=== PATIENT | male | born 1970 | race American Indian/Alaskan Native ===

== ENCOUNTER 2018-06-05 07:08 | Emergency (ER) | payer MEDICAID ==
[2018-06-05 07:16] VITALS: BMI 25.8
[2018-06-05 07:18] VITALS: TEMP 98.8; O2SAT 99
[2018-06-05 08:24] LABS: BASO # 0.1 K/uL (0.0-0.2); BASO % 1.1 % (0.0-2.0); EOS # 0.1 K/uL (0.0-0.7); EOS % 1.1 % (0.0-4.0); HEMOGLOBIN 12.8 g/dL (12.0-18.0); LYMPH # 1.7 K/uL (1.0-4.3); LYMPH % 35.9 % (20.0-40.0); MEAN CELL VOLUME 98.3 fl (80.0-94.0); MEAN CORPUSCULAR HEMOGLOBIN 33.1 pg (27.0-31.0); MEAN CORPUSCULAR HGB CONC 33.7 g/dL (33.0-37.0); MONO # 0.7 K/uL (0.0-0.8); MONO % 13.8 % (0.0-10.0); NEUT # 2.3 K/uL (1.8-7.0); NEUT % 48.1 % (50.0-75.0); NRBC % 0.2 % (0.0-0.0); RBC 3.85 Mil/uL (4.40-5.90); RED CELL DISTRIBUTION WIDTH 12.6 % (11.5-14.5); WHITE BLOOD COUNT 4.8 K/uL (4.8-10.8)
[2018-06-05 08:31] LABS: PROTHROMBIN TIME 10.9 Seconds (9.8-13.1)
[2018-06-05 08:33] LABS: ALB/GLOB RATIO 1.3 (1.0-2.1); ALT/SGPT 27 U/L (21-72); AST/SGOT 32 U/L (17-59); BLOOD UREA NITROGEN 12 mg/dl (9-20); CALCIUM 9.1 mg/dL (8.4-10.2); GFR NON-AFRICAN AMERICAN > 60
[2018-06-05 08:34] LABS: PARTIAL THROMBOPLASTIN TIME 25.9 Seconds (25.6-37.1)
--- NOTE | 2018-06-05 08:49 | CT ---
Date of service: 06/05/2018 PROCEDURE: CT HEAD WITHOUT CONTRAST. HISTORY: r/o ICH COMPARISON: None available. TECHNIQUE: Axial computed tomography images were obtained through the head/brain without intravenous contrast. Radiation dose: Total exam DLP = 865.31 mGy-cm. This CT exam was performed using one or more of the following dose reduction techniques: Automated exposure control, adjustment of the mA and/or kV according to patient size, and/or use of iterative reconstruction technique. FINDINGS: HEMORRHAGE: No intracranial hemorrhage. BRAIN: No mass effect or edema. No atrophy or chronic microvascular ischemic changes. VENTRICLES: Unremarkable. No hydrocephalus. CALVARIUM: Unremarkable. PARANASAL SINUSES: Unremarkable as visualized. No significant inflammatory changes. MASTOID AIR CELLS: Unremarkable as visualized. No inflammatory changes. OTHER FINDINGS: None. IMPRESSION: No acute intracranial pathology.
--- NOTE | 2018-06-05 08:51 | CT ---
Date of service: 06/05/2018 PROCEDURE: CT Cervical Spine without contrast HISTORY: trauma r/o fx COMPARISON: None available. TECHNIQUE: Axial computed tomography images were obtained of the cervical spine without the use of intravenous contrast. Coronal and sagittal reformatted images were created and reviewed. Radiation dose: Total exam DLP = 370.05 mGy-cm. This CT exam was performed using one or more of the following dose reduction techniques: Automated exposure control, adjustment of the mA and/or kV according to patient size, and/or use of iterative reconstruction technique. FINDINGS: VERTEBRAE: No fracture. Reversal of the normal lordosis at C6. No destructive bony lesion. DISCS/SPINAL CANAL/NEURAL FORAMINA: Multilevel disc space narrowing with disc osteophyte complex formation. PARASPINAL SOFT TISSUES: Unremarkable. OTHER FINDINGS: None. IMPRESSION: No acute fracture. Multilevel degenerative changes.
--- NOTE | 2018-06-05 11:38 | ED PDOC ---
Upper Extremity Pain/Injury Time Seen by Provider: 06/05/18 07:17 Chief Complaint (Nursing): Finger,Hand,&Wrist Chief Complaint (Provider): left hand weakness History Per: Patient History/Exam Limitations: no limitations Onset/Duration Of Symptoms: Days (1-2 weeks), Gradual Current Symptoms Are (Timing): Still Present Severity: Moderate Hands/Wrist (Pic): 1 - Pain Worse W/Movement 2 - Pain Worse W/Movement Exacerbating Factor(s): Strenuous Use Of Affected Area Additional Complaint(s): 47yo male c/o left hand weakness and some mild paresthesias ongoing and worsening for 1-2 weeks. 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 Notes some L shoulder pain but denies elbow or upper arm pain. Denies headache, facial droop, or lower extremity symptoms. Denies trauma, laceration or injury. Is R hand dominant. Past Medical History Reviewed: Historical Data, Nursing Documentation, Vital Signs Vital Signs: Last Vital Signs Temp 98.8 F 06/05/18 07:16 Pulse 78 06/05/18 07:16 Resp 17 06/05/18 07:16 BP 159/79 H 06/05/18 07:16 Pulse Ox 99 06/05/18 07:16 - Medical History PMH: Denies: Diabetes, HTN - Surgical History Other surgeries: tendon repair R hand many years ago - Family History Family History: States: Unknown Family Hx - Social History Current smoker - smoking cessation education provided: Yes - Allergies Allergies/Adverse Reactions: Allergies Allergy/AdvReac Type Severity Reaction Status Date / Time No Known Allergies Allergy Verified 06/05/18 07:33 Review of Systems ROS Statement: Except As Marked, All Systems Reviewed And Found Negative Constitutional: Negative for: Fever Cardiovascular: Negative for: Chest Pain Respiratory: Negative for: Shortness of Breath Gastrointestinal: Negative for: Nausea Musculoskeletal: Positive for: Shoulder Pain, Hand Pain (mild). Negative for: Neck Pain Skin: Negative for: Rash, Lesions Neurological: Positive for: Weakness (L hand isolated), Numbness (L hand). Negative for: Confusion, Seizures, Headache Psych: Negative for: Psychosis Physical Exam - Reviewed Nursing Documentation Reviewed: Yes Vital Signs Reviewed: Yes - Physical Exam Appears: Positive for: Well, Non-toxic, No Acute Distress Head Exam: Positive for: ATRAUMATIC, NORMAL INSPECTION, NORMOCEPHALIC Skin: Positive for: Normal Color, Warm, DRY Eye Exam: Positive for: EOMI, Normal appearance, PERRL ENT: Positive for: Normal ENT Inspection Neck: Positive for: Normal, Painless ROM Cardiovascular/Chest: Positive for: Regular Rate, Rhythm Respiratory: Positive for: CNT, Normal Breath Sounds Gastrointestinal/Abdominal: Positive for: Normal Exam, Soft Back: Positive for: Normal Inspection Extremity: Positive for: Normal ROM Neurologic/Psych: Positive for: Alert, Oriented - Laboratory Results Result Diagrams: 06/05/18 08:13 06/05/18 08:13 Lab Results: PT 10.9 Seconds (9.8-13.1) 06/05/18 08:13 INR 1.0 06/05/18 08:13 APTT 25.9 Seconds (25.6-37.1) 06/05/18 08:13 Total Bilirubin 0.7 mg/dl (0.2-1.3) 06/05/18 08:13 AST 32 U/L (17-59) 06/05/18 08:13 ALT 27 U/L (21-72) 06/05/18 08:13 Alkaline Phosphatase 45 U/L (38-126) 06/05/18 08:13 Total Protein 7.2 G/DL (6.3-8.2) 06/05/18 08:13 Albumin 4.0 g/dL (3.5-5.0) 06/05/18 08:13 Globulin 3.2 gm/dL (2.2-3.9) 06/05/18 08:13 Albumin/Globulin Ratio 1.3 (1.0-2.1) 06/05/18 08:13 - ECG O2 Sat by Pulse Oximetry: 99 Medical Decision Making Medical Decision Making: (note picture above- pain not with ROM, location signifies weakness, not pain or numbness, EMR limitation on documentation) workup for localized hand weakness, mostly 1st/ 2nd digit cannot oppose, given history as a cook, likely peripheral nerve injury/impingement. CT brain and CSpine ordered, labs and EKG labs unremarkable EKG reviewed CT reports reviewed discussed w hand surgery Dr Sykes as patient [place] for follow[place], can see in office, recommend cockup splint and will see in office early this week. Disposition - Clinical Impression Clinical Impression: Hand weakness - Patient ED Disposition Is Patient to be Admitted: No Counseled Patient/Family Regarding: Studies Performed, Diagnosis - Disposition Referrals: Deana Sykes MD [Medical Doctor] - Disposition: Routine/Home Disposition Time: 11:30 Condition: STABLE Additional Instructions: See hand specialist in 1-3 days for followup and definitive management of your hand weakness. Failure to followup in timely manner can have permanent complications including loss of use of hand, weakness or numbness. Return to ER for any worsening symptoms, worse weakness, numbness or inability to see specialist timely. May use OTC motrin for pain. Wear splint as directed, may take off to shower. Instructions: Nerve Conduction Study, Paresthesias (DC), Weakness (ED) Forms: [facility] (Bulgarian)
[2018-06-05 12:37] VITALS: BP 150/80; PULSE 72; RESP 18
--- NOTE | 2018-06-06 10:04 | CARD ---
APPROVED REPORT Date of service: 06/05/2018 EKG Measurement Heart [id number] <Conclusion> Normal sinus rhythm with sinus arrhythmia Normal ECG
== END 2018-06-05 11:50 | disposition home or self-care (01) ==
LOC: H.ER 07:08
DX: R20.2 Paresthesia of skin (principal); M62.81 Muscle weakness (generalized)